=== PATIENT | female | born 1990 ===

== ENCOUNTER 2018-03-28 11:02 | Emergency (ER) | payer BC ==
[~2018-03-28] VITALS: Ht 129.5 cm; Wt 56.7 kg
[~2018-03-28 11:02] MED LIST: ADAL40PEN; ALPR.5 PO; BISA10S PR; CIPR500 PO; DOCU100 PO; GAVILAX17 GM PO; HYDACE25S PR; HYDR1TAB94 PO; HYDSUL200 PO; IBUP600 PO; MESALAMINE1.2 GM PO; METO25ER PO; METR500 PO; PRED10 PO; Percocet 5-3251 EACH PO; Prednisone20 MG PO; SULF500A PO; UCERIS9 MG PO; Zofran Odt4 MG SL
[2018-03-28 11:34] LABS: Source, Urine Clean Catch
[2018-03-28 11:39] LABS: Bilirubin, Urine Neg (Neg); Blood, Urine Neg (Neg); Glucose Qualitative, Urine Neg (Neg); Ketones, Urine Neg (Neg); Leukocyte Esterase, Urine Neg (Neg); Nitrite, Urine Neg (Neg); Protein, Urine Neg (Neg); Urobilinogen, Urine NORM (Normal); pH, Urine 6.5 (5.0-8.0)
[2018-03-28 11:43] LABS: BASOPHILS ABSOLUTE AUTO 0.01 K/mm3 (0.00-0.23); BASOPHILS PERCENT AUTO 0 % (0-2); EOSINOPHILS ABSOLUTE AUTO 0.06 K/mm3 (0.00-0.68); EOSINOPHILS PERCENT AUTO 1 % (0-6); Hematocrit 39.5 % (33.0-51.0); Hemoglobin 12.6 g/dL (11.5-16.0); IMMATURE GRAN ABSOLUTE AUTO 0.02 K/mm3 (0.00-0.10); IMMATURE GRAN PERCENT AUTO 1 % (0-1); LYMPHOCYTES ABSOLUTE AUTO 1.51 K/mm3 (0.84-5.20); LYMPHOCYTES PERCENT AUTO 35 % (21-46); MONOCYTES ABSOLUTE AUTO 0.48 K/mm3 (0.16-1.47); MONOCYTES PERCENT AUTO 11 % (4-13); Mean Corpuscular HGB 26.9 pg (26.0-34.0); Mean Corpuscular HGB Conc 31.9 g/dL (31.5-36.5); Mean Corpuscular Volume 84 fL (80-100); Mean Platelet Volume 10.9 fL (9.1-12.4); NEUTROPHILS PERCENT AUTO 51 % (41-73); Platelet Count 230 K/mm3 (150-400); RDW Coefficient Variation 14.9 % (11.7-14.2); RDW Standard Deviation 46.2 fL (35.1-46.3); Red Blood Cell Count 4.69 M/mm3 (3.80-5.20); White Blood Cell Count 4.28 K/mm3 (4.00-11.30)
[2018-03-28 11:47] LABS: Appearance, Urine Clear (Clear); Color, Urine Yellow (P-Yellow)
[2018-03-28 11:58] LABS: Alanine Aminotransfer (ALT/SGP 14 U/L (12-78); Albumin, Blood 3.6 g/dL (3.4-5.0); Albumin/Globulin Ratio 0.7 (0.8-1.8); Alk Phos 106 U/L (50-136); Anion Gap 10 mmol/L (6-16); Aspartate Aminotrans (AST/SGOT 21 U/L (12-37); Bilirubin, Total 0.4 mg/dL (0.1-1.0); Blood Urea Nitrogen 8 mg/dL (8-24); CO2, Blood 22 mmol/L (21-32); Calcium, Blood 8.7 mg/dL (8.5-10.1); Chloride, Blood 106 mmol/L (98-108); Creatinine, Blood 0.57 mg/dL (0.40-1.00); Globulin, Blood 5.1 g/dL (2.2-4.0); Glomerular Filtration Rate >60 (60-); Glucose, Blood 76 mg/dL (70-99); Potassium, Blood 3.1 mmol/L (3.5-5.5); Sodium, Blood 138 mmol/L (136-145); Total Protein, Blood 8.7 g/dL (6.4-8.2)
[2018-03-28] MEDS ORDERED: Zofran4 MG PO (14:13)
== END 2018-03-28 14:20 | disposition home or self-care (01) ==
LOC: ER 11:02
PROVIDERS: Emergency Medicine
DX: R10.30 Lower abdominal pain, unspecified (principal); Z87.19 Personal history of other diseases of the digestive system; Z91.040 Latex allergy status
CPT/HCPCS: 36415; 80053; 81003; 81025; 83690; 85025; 96374; 96375; 99284-25; J1170; J2060; J2405; J7120

== ENCOUNTER 2018-03-30 08:49 | Day surgery (SDC) | payer BC ==
[~2018-03-30] VITALS: Ht 154.9 cm; Wt 55.0 kg
[~2018-03-30 08:49] MED LIST changes: +Zofran4 MG PO
== END 2018-03-30 11:12 | disposition home or self-care (01) ==
LOC: ORSCSDS 08:49
PROVIDERS: Internal Medicine Gastroenterology
PROC: 0DBB8ZX Excision of Ileum, Via Natural or Artificial Opening Endoscopic, Diagnostic (ICD-10-PCS; principal; 2018-03-30 10:15)
PROC: 0DBE8ZX Excision of Large Intestine, Via Natural or Artificial Opening Endoscopic, Diagnostic (ICD-10-PCS; principal; 2018-03-30 10:15)
PROC: 0DBP8ZX Excision of Rectum, Via Natural or Artificial Opening Endoscopic, Diagnostic (ICD-10-PCS; principal; 2018-03-30 10:15)
DX: K50.90 Crohn's disease, unspecified, without complications (principal); K64.4 Residual hemorrhoidal skin tags; I10 Essential (primary) hypertension; D64.9 Anemia, unspecified; Z79.899 Other long term (current) drug therapy
CPT/HCPCS: 88305; J7120

== ENCOUNTER 2018-06-19 09:39 | Emergency (ER) | payer BC ==
[~2018-06-19] VITALS: Ht 154.9 cm; Wt 56.7 kg
[2018-06-19] MEDS ORDERED: STELARA90 MG/1 ML (11:06)
[2018-06-19 11:25] LABS: BASOPHILS ABSOLUTE AUTO 0.01 K/mm3 (0.00-0.23); BASOPHILS PERCENT AUTO 0 % (0-2); EOSINOPHILS ABSOLUTE AUTO 0.01 K/mm3 (0.00-0.68); EOSINOPHILS PERCENT AUTO 0 % (0-6); Hematocrit 39.3 % (33.0-51.0); Hemoglobin 12.7 g/dL (11.5-16.0); IMMATURE GRAN ABSOLUTE AUTO 0.01 K/mm3 (0.00-0.10); IMMATURE GRAN PERCENT AUTO 0 % (0-1); LYMPHOCYTES ABSOLUTE AUTO 1.18 K/mm3 (0.84-5.20); LYMPHOCYTES PERCENT AUTO 30 % (21-46); MONOCYTES PERCENT AUTO 13 % (4-13); Mean Corpuscular HGB 27.1 pg (26.0-34.0); Mean Corpuscular HGB Conc 32.3 g/dL (31.5-36.5); Mean Corpuscular Volume 84 fL (80-100); Mean Platelet Volume 10.9 fL (9.1-12.4); NEUTROPHILS ABSOLUTE AUTO 2.25 K/mm3 (1.96-9.15); NEUTROPHILS PERCENT AUTO 57 % (41-73); Platelet Count 174 K/mm3 (150-400); RDW Coefficient Variation 14.2 % (11.7-14.2); RDW Standard Deviation 43.3 fL (35.1-46.3); Red Blood Cell Count 4.69 M/mm3 (3.80-5.20); White Blood Cell Count 3.96 K/mm3 (4.00-11.30)
[2018-06-19 11:45] LABS: Alanine Aminotransfer (ALT/SGP 15 U/L (12-78); Albumin, Blood 3.6 g/dL (3.4-5.0); Albumin/Globulin Ratio 0.7 (0.8-1.8); Alk Phos 113 U/L (50-136); Anion Gap 9 mmol/L (6-16); Aspartate Aminotrans (AST/SGOT 25 U/L (12-37); Bilirubin, Total 0.4 mg/dL (0.1-1.0); Blood Urea Nitrogen 7 mg/dL (8-24); Bun/Creatinine Ratio 13.7 (12.0-20.0); CO2, Blood 24 mmol/L (21-32); Calcium, Blood 8.5 mg/dL (8.5-10.1); Chloride, Blood 104 mmol/L (98-108); Creatinine, Blood 0.51 mg/dL (0.40-1.00); Globulin, Blood 5.5 g/dL (2.2-4.0); Glomerular Filtration Rate >60 (60-); Glucose, Blood 77 mg/dL (70-99); Potassium, Blood 3.4 mmol/L (3.5-5.5); Sodium, Blood 137 mmol/L (136-145); Total Protein, Blood 9.1 g/dL (6.4-8.2)
[2018-06-19] MEDS ORDERED: Zofran8 MG PO (14:22)
[2018-06-19] MEDS ORDERED: IBUP400 PO (14:22)
== END 2018-06-19 14:35 | disposition home or self-care (01) ==
LOC: ER 09:39
PROVIDERS: Emergency Medicine
DX: R51 Headache (principal); K50.90 Crohn's disease, unspecified, without complications; L93.0 Discoid lupus erythematosus; M25.561 Pain in right knee; M25.562 Pain in left knee; Z91.040 Latex allergy status; Z88.5 Allergy status to narcotic agent; M19.90 Unspecified osteoarthritis, unspecified site
CPT/HCPCS: 36415; 80053; 85025; 96361; 96374; 99283-25; J0780; J7030

== ENCOUNTER → 2018-08-29 | Outpatient (CLI) | payer BC ==
[~2018-08-29] MED LIST changes: +IBUP400 PO; +STELARA90 MG/1 ML; +Zofran8 MG PO
[2018-08-31 13:07] LABS: HPV 16 Negative (Negative); HPV 18 Negative (Negative); HPV OTHER HR TYPES Negative (Negative)
== END | disposition home or self-care (01) ==
LOC: LAB 18:25 → LAB SHORT 18:25
PROVIDERS: Nurse Practitioner Family
DX: Z12.4 Encounter for screening for malignant neoplasm of cervix (principal)
CPT/HCPCS: 87624; G0123

== ENCOUNTER → 2018-11-14 | Outpatient (CLI) | payer BC, OTHER | LOC: LAB 18:15 → LAB SHORT 18:15 | DX: R30.0 Dysuria (principal) | CPT/HCPCS: 87086 ==

== ENCOUNTER 2019-01-24 05:58 | Day surgery (SDC) | payer BC, OTHER ==
[~2019-01-24] VITALS: Ht 154.9 cm; Wt 56.2 kg
[~2019-01-24 05:58] MED LIST changes: +QUDEXY XR50 MG PO
--- NOTE | 2019-01-24 06:38 | NUR ---
History, Chart, Medications and Allergies reviewed before start of procedure. Lungs clear T/O to Auscultation.
--- NOTE | 2019-01-24 07:52 | NUR ---
01/24/19 0752 Estee Quan CATH, NONLATEX, PLACED BY DR PABLO AT BEGINNING OF PROCEDURE.
[2019-01-24 15:07] LABS: BASOPHILS ABSOLUTE AUTO 0.01 K/mm3 (0.00-0.23); BASOPHILS PERCENT AUTO 0 % (0-2); EOSINOPHILS PERCENT AUTO 0 % (0-6); Hematocrit 34.7 % (33.0-51.0); Hemoglobin 11.3 g/dL (11.5-16.0); IMMATURE GRAN ABSOLUTE AUTO 0.04 K/mm3 (0.00-0.10); IMMATURE GRAN PERCENT AUTO 0 % (0-1); LYMPHOCYTES ABSOLUTE AUTO 0.57 K/mm3 (0.84-5.20); LYMPHOCYTES PERCENT AUTO 5 % (21-46); MONOCYTES ABSOLUTE AUTO 0.25 K/mm3 (0.16-1.47); MONOCYTES PERCENT AUTO 2 % (4-13); Mean Corpuscular HGB 28.3 pg (26.0-34.0); Mean Corpuscular HGB Conc 32.6 g/dL (31.5-36.5); Mean Corpuscular Volume 87 fL (80-100); Mean Platelet Volume 10.6 fL (9.1-12.4); NEUTROPHILS ABSOLUTE AUTO 10.34 K/mm3 (1.96-9.15); NEUTROPHILS PERCENT AUTO 92 % (41-73); Platelet Count 195 K/mm3 (150-400); RDW Standard Deviation 44.9 fL (35.1-46.3); White Blood Cell Count 11.21 K/mm3 (4.00-11.30)
--- NOTE | 2019-01-24 16:23 | NUR ---
SHIFT SUMMARY S/P VAG HYSTERECTOMY TODAY. PT HAS STRUGGLED WITH PAIN MANAGEMENT. 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 GIVING TORADOL PER ORDERS WELL. PT HAS ALSO BEEN NAUSEATED--MEDICATING WITH ZOFRAN. ONLY TOLERATING SMALL SIPS OF CLEARS. PT HAS BEEN UP OUT OF BED TO THE RESTROOM WITH 1 SBA. RANDY PAD WITH SCANT VAGINAL BLEEDING. PÉREZ PATENT WITH CLEAR YELLOW URINE. PT USES CALL LIGHT APPROPRIATELY.
[2019-01-25 04:32] LABS: BASOPHILS ABSOLUTE AUTO 0.01 K/mm3 (0.00-0.23); BASOPHILS PERCENT AUTO 0 % (0-2); EOSINOPHILS ABSOLUTE AUTO 0.01 K/mm3 (0.00-0.68); EOSINOPHILS PERCENT AUTO 0 % (0-6); Hematocrit 31.8 % (33.0-51.0); Hemoglobin 10.8 g/dL (11.5-16.0); IMMATURE GRAN ABSOLUTE AUTO 0.02 K/mm3 (0.00-0.10); IMMATURE GRAN PERCENT AUTO 0 % (0-1); LYMPHOCYTES ABSOLUTE AUTO 1.08 K/mm3 (0.84-5.20); LYMPHOCYTES PERCENT AUTO 17 % (21-46); MONOCYTES ABSOLUTE AUTO 0.63 K/mm3 (0.16-1.47); MONOCYTES PERCENT AUTO 10 % (4-13); Mean Corpuscular HGB 28.8 pg (26.0-34.0); Mean Corpuscular Volume 85 fL (80-100); Mean Platelet Volume 10.6 fL (9.1-12.4); NEUTROPHILS ABSOLUTE AUTO 4.55 K/mm3 (1.96-9.15); NEUTROPHILS PERCENT AUTO 72 % (41-73); Platelet Count 185 K/mm3 (150-400); RDW Coefficient Variation 13.9 % (11.7-14.2); RDW Standard Deviation 42.9 fL (35.1-46.3); Red Blood Cell Count 3.75 M/mm3 (3.80-5.20)
--- NOTE | 2019-01-25 06:00 | NUR ---
SHIFT SUMMARY POD 1 S/P VAGINAL HYSTER. A/OX4 W/VSS. PT RESTED WELL MOST OF SHIFT. MEDICATED ONCE WITH PO MEDS PER EMAR. TOLERATED SMALL AMOUNTS OF REGULAR DIET. FLUIDS AND ABX RUNNING PER ORDERS. SCANT AMOUNT OF VAGINAL BLEEDING NOTED. CURRENTLY RESTING IN BED WITH CALL LIGHT WITHIN REACH.
--- NOTE | 2019-01-25 07:50 | NUR ---
PT STATED PAIN IS 4-5/10 NO FLATUS PT HAS SMALL AMT OF VAG BLEEDING NO NAUSEA
--- NOTE | 2019-01-25 08:30 | NUR ---
DR PABLO BY TO SEE PT PT HAS VOIDED 300 ML OK TO DISCHARGE HOME
[2019-01-25] MEDS ORDERED: DOCU100 PO (09:49)
[2019-01-25] MEDS ORDERED: HYDR1TAB94 PO (09:50)
--- NOTE | 2019-01-25 09:59 | NUR ---
0.5 MG NORCO GIVEN DISCHARGE INSTRUCTIONS REVIEWED WITH PT VERBALIZED NO ACUTE CHANGES RX GIVEN
--- NOTE | 2019-01-25 10:05 | NUR ---
WC ESCORT TO CAR
== END 2019-01-25 10:06 | disposition home or self-care (01) ==
LOC: ORSCMMR 05:58 → ORD 07:30 → SURS 10:39 → ORSCMMR 01-25 10:06
PROVIDERS: Obstetrics & Gynecology Gynecology
PROC: 0UT97ZZ Resection of Uterus, Via Natural or Artificial Opening (ICD-10-PCS; principal; 2019-01-25)
DX: N92.0 Excessive and frequent menstruation with regular cycle (principal); N94.6 Dysmenorrhea, unspecified; D50.0 Iron deficiency anemia secondary to blood loss (chronic); Z92.0 Personal history of contraception; K50.90 Crohn's disease, unspecified, without complications; M32.9 Systemic lupus erythematosus, unspecified; I10 Essential (primary) hypertension
CPT/HCPCS: 36415; 85025; 88307; A9270-GY; J0690; J1100; J1885; J2250; J2270; J2405; J2704; J2710; J3010; J7120

== ENCOUNTER 2019-04-03 12:03 | Emergency (ER) | payer BC, OTHER ==
[~2019-04-03] VITALS: Ht 154.9 cm; Wt 53.5 kg
[2019-04-03] MEDS ORDERED: BUSP10 PO (12:23)
[2019-04-03] MEDS ORDERED: AMOX250 PO (12:23)
[2019-04-03 13:11] LABS: BASOPHILS ABSOLUTE AUTO 0.02 K/mm3 (0.00-0.23); BASOPHILS PERCENT AUTO 1 % (0-2); EOSINOPHILS ABSOLUTE AUTO 0.04 K/mm3 (0.00-0.68); EOSINOPHILS PERCENT AUTO 1 % (0-6); Hematocrit 41.4 % (33.0-51.0); Hemoglobin 13.6 g/dL (11.5-16.0); IMMATURE GRAN ABSOLUTE AUTO 0.01 K/mm3 (0.00-0.10); IMMATURE GRAN PERCENT AUTO 0 % (0-1); LYMPHOCYTES ABSOLUTE AUTO 1.09 K/mm3 (0.84-5.20); LYMPHOCYTES PERCENT AUTO 25 % (21-46); MONOCYTES ABSOLUTE AUTO 0.63 K/mm3 (0.16-1.47); MONOCYTES PERCENT AUTO 15 % (4-13); Mean Corpuscular HGB 28.1 pg (26.0-34.0); Mean Corpuscular HGB Conc 32.9 g/dL (31.5-36.5); Mean Corpuscular Volume 86 fL (80-100); Mean Platelet Volume 10.9 fL (9.1-12.4); NEUTROPHILS ABSOLUTE AUTO 2.52 K/mm3 (1.96-9.15); NEUTROPHILS PERCENT AUTO 59 % (41-73); Platelet Count 190 K/mm3 (150-400); RDW Coefficient Variation 13.6 % (11.7-14.2); RDW Standard Deviation 43.3 fL (35.1-46.3); Red Blood Cell Count 4.84 M/mm3 (3.80-5.20); White Blood Cell Count 4.31 K/mm3 (4.00-11.30)
[2019-04-03 13:21] LABS: Alanine Aminotransfer (ALT/SGP 16 U/L (12-78); Albumin, Blood 3.7 g/dL (3.4-5.0); Albumin/Globulin Ratio 0.6 (0.8-1.8); Alk Phos 129 U/L (50-136); Anion Gap 6 mmol/L (6-16); Aspartate Aminotrans (AST/SGOT 18 U/L (12-37); Bilirubin, Total 0.4 mg/dL (0.1-1.0); Blood Urea Nitrogen 11 mg/dL (8-24); Bun/Creatinine Ratio 16.7 (12.0-20.0); CO2, Blood 22 mmol/L (21-32); Calcium, Blood 8.9 mg/dL (8.5-10.1); Chloride, Blood 108 mmol/L (98-108); Creatinine, Blood 0.66 mg/dL (0.40-1.00); Globulin, Blood 5.7 g/dL (2.2-4.0); Glomerular Filtration Rate >60 (60-); Glucose, Blood 91 mg/dL (70-99); Potassium, Blood 3.6 mmol/L (3.5-5.5); Sodium, Blood 136 mmol/L (136-145); Total Protein, Blood 9.4 g/dL (6.4-8.2)
[2019-04-03 14:46] LABS: Base Excess Venous -6.6 mmol/L; Bicarbonate Venous 19.7 mmol/L (24.0-30.0); PCO2 Venous 34.9 mmHg (38-42); PO2 Venous 83.6 mmHg (38-42); pH Blood Venous 7.35 (7.34-7.37)
[2019-04-03] MEDS ORDERED: KEFLEX500 MG PO (15:29)
== END 2019-04-03 15:38 | disposition home or self-care (01) ==
LOC: ER 12:03
PROVIDERS: Emergency Medicine; Physician Assistant
DX: J40 Bronchitis, not specified as acute or chronic (principal); R59.0 Localized enlarged lymph nodes; G47.00 Insomnia, unspecified; Z91.040 Latex allergy status; Z88.5 Allergy status to narcotic agent; Z79.899 Other long term (current) drug therapy
CPT/HCPCS: 36415; 71046; 80053; 82803; 85025; 93005; 93010; 99284-25

== ENCOUNTER → 2020-03-11 | Outpatient (CLI) | payer OTHER ==
[~2020-03-11] MED LIST changes: +AMIT10 PO; +AMOX250 PO; +BUSP10 PO; +EMGALITY120 MG/1 M SQ; +ESTRADIOL42.5 GM; +FENO48 PO; +KEFLEX500 MG PO; +KETOROLAC TROME10 M1 PO; +ZOLM5 PO
== END ==
LOC: LAB 13:09 → LAB SHORT 13:09
DX: J02.9 Acute pharyngitis, unspecified (principal); M54.9 Dorsalgia, unspecified
CPT/HCPCS: 87081; 87086

== ENCOUNTER 2020-05-09 19:07 | Emergency (ER) | payer OTHER ==
[~2020-05-09] VITALS: Ht 154.9 cm; Wt 65.8 kg
[~2020-05-09 19:07] MED LIST changes: -AMIT10 PO; -EMGALITY120 MG/1 M SQ; -ESTRADIOL42.5 GM; -FENO48 PO; -KETOROLAC TROME10 M1 PO; -ZOLM5 PO
[2020-05-09] MEDS ORDERED: ESTRADIOL42.5 GM (20:06)
[2020-05-09] MEDS ORDERED: KETOROLAC TROME10 M1 PO (20:06)
[2020-05-09] MEDS ORDERED: AMIT10 PO (20:06)
== END 2020-05-09 22:06 | disposition home or self-care (01) ==
LOC: ER 19:07
DX: N64.4 Mastodynia (principal); Z88.0 Allergy status to penicillin; Z88.5 Allergy status to narcotic agent; Z79.3 Long term (current) use of hormonal contraceptives; Z91.040 Latex allergy status
CPT/HCPCS: 71046; 99283-25

== ENCOUNTER 2020-09-11 17:56 | Emergency (ER) | payer OTHER ==
[~2020-09-11] VITALS: Ht 154.9 cm; Wt 64.4 kg
[~2020-09-11 17:56] MED LIST changes: +AMIT10 PO; +ESTRADIOL42.5 GM; +KETOROLAC TROME10 M1 PO
[2020-09-11 18:28] LABS: BASOPHILS ABSOLUTE AUTO 0.02 K/mm3 (0.00-0.23); BASOPHILS PERCENT AUTO 0 % (0-2); EOSINOPHILS ABSOLUTE AUTO 0.07 K/mm3 (0.00-0.68); EOSINOPHILS PERCENT AUTO 1 % (0-6); Hematocrit 38.8 % (33.0-51.0); Hemoglobin 13.3 g/dL (11.5-16.0); IMMATURE GRAN ABSOLUTE AUTO 0.02 K/mm3 (0.00-0.10); IMMATURE GRAN PERCENT AUTO 0 % (0-1); LYMPHOCYTES ABSOLUTE AUTO 1.49 K/mm3 (0.84-5.20); LYMPHOCYTES PERCENT AUTO 30 % (21-46); MONOCYTES ABSOLUTE AUTO 0.39 K/mm3 (0.16-1.47); MONOCYTES PERCENT AUTO 8 % (4-13); Mean Corpuscular HGB 29.8 pg (26.0-34.0); Mean Corpuscular HGB Conc 34.3 g/dL (31.5-36.5); Mean Corpuscular Volume 87 fL (80-100); Mean Platelet Volume 10.8 fL (9.1-12.4); NEUTROPHILS ABSOLUTE AUTO 2.99 K/mm3 (1.96-9.15); NEUTROPHILS PERCENT AUTO 60 % (41-73); Platelet Count 226 K/mm3 (150-400); RDW Standard Deviation 41.2 fL (35.1-46.3); Red Blood Cell Count 4.46 M/mm3 (3.80-5.20); White Blood Cell Count 4.98 K/mm3 (4.00-11.30)
[2020-09-11 18:58] LABS: Alanine Aminotransfer (ALT/SGP 59 U/L (12-78); Albumin, Blood 3.5 g/dL (3.4-5.0); Albumin/Globulin Ratio 0.7 (0.8-1.8); Alk Phos 105 U/L (50-136); Anion Gap 5 mmol/L (6-16); Aspartate Aminotrans (AST/SGOT 57 U/L (12-37); Bilirubin, Total 0.6 mg/dL (0.1-1.0); Blood Urea Nitrogen 9 mg/dL (8-24); Bun/Creatinine Ratio 13.3 (12.0-20.0); CO2, Blood 25 mmol/L (21-32); Chloride, Blood 106 mmol/L (98-108); Creatinine, Blood 0.68 mg/dL (0.40-1.00); Globulin, Blood 5.3 g/dL (2.2-4.0); Glomerular Filtration Rate >60 (60-); Glucose, Blood 95 mg/dL (70-99); Potassium, Blood 3.9 mmol/L (3.5-5.5); Sodium, Blood 136 mmol/L (136-145); Total Protein, Blood 8.8 g/dL (6.4-8.2)
[2020-09-11 20:36] LABS: Source, Urine Clean Catch
[2020-09-11 20:45] LABS: Appearance, Urine Clear (Clear); Bilirubin, Urine Neg (Neg); Blood, Urine 2+ (Neg); Color, Urine Yellow (P-Yellow); Glucose Qualitative, Urine Neg (Neg); Ketones, Urine Neg (Neg); Leukocyte Esterase, Urine Neg (Neg); Nitrite, Urine Neg (Neg); Protein, Urine 3+ (Neg); Urobilinogen, Urine 1+ (Normal)
[2020-09-11 20:54] LABS: Bacteria Many /hpf; Mucus Light (0-Heavy); Squamous Epithelial Cells Few /hpf (Few); White Blood Cells, Urine 0-2 /hpf (0-5)
[2020-09-11] MEDS ORDERED: EMGALITY120 MG/1 M SQ (21:41)
[2020-09-11] MEDS ORDERED: FENO48 PO (21:41)
[2020-09-11] MEDS ORDERED: ZOLM5 PO (21:42)
== END 2020-09-12 00:52 | disposition home or self-care (01) ==
LOC: ER 17:56
PROVIDERS: Physician Assistant
DX: R10.9 Unspecified abdominal pain (principal); Z79.3 Long term (current) use of hormonal contraceptives; Z79.899 Other long term (current) drug therapy; Z88.5 Allergy status to narcotic agent
CPT/HCPCS: 36415; 74177; 80053; 81001; 81025; 83690; 85025; 87086; 96374-59; 99284-25; J1885; J7030; Q9967

== ENCOUNTER → 2021-02-08 | Outpatient (CLI) | payer OTHER ==
[~2021-02-08] MED LIST changes: +EMGALITY120 MG/1 M SQ; +FENO48 PO; +ZOLM5 PO
== END ==
LOC: LAB SHORT 16:06
DX: R30.0 Dysuria (principal)
CPT/HCPCS: 87077; 87086; 87186

== ENCOUNTER 2021-08-15 13:05 | Emergency (ER) | payer OTHER ==
[~2021-08-15] VITALS: Ht 154.9 cm; Wt 62.6 kg
[~2021-08-15 13:05] MED LIST changes: +BENZ100A PO; +Norco 5-325 Ta1 EACH PO; +Pepcid20 MG PO
[2021-08-15 14:00] LABS: BASOPHILS ABSOLUTE AUTO 0.01 K/mm3 (0.00-0.23); BASOPHILS PERCENT AUTO 0 % (0-2); EOSINOPHILS ABSOLUTE AUTO 0.09 K/mm3 (0.00-0.68); EOSINOPHILS PERCENT AUTO 3 % (0-6); Hematocrit 37.9 % (33.0-51.0); IMMATURE GRAN ABSOLUTE AUTO 0.01 K/mm3 (0.00-0.10); IMMATURE GRAN PERCENT AUTO 0 % (0-1); LYMPHOCYTES ABSOLUTE AUTO 1.21 K/mm3 (0.84-5.20); LYMPHOCYTES PERCENT AUTO 33 % (21-46); MONOCYTES ABSOLUTE AUTO 0.35 K/mm3 (0.16-1.47); MONOCYTES PERCENT AUTO 10 % (4-13); Mean Corpuscular HGB Conc 34.3 g/dL (31.5-36.5); Mean Corpuscular Volume 88 fL (80-100); NEUTROPHILS ABSOLUTE AUTO 1.96 K/mm3 (1.96-9.15); NEUTROPHILS PERCENT AUTO 54 % (41-73); Platelet Count 183 K/mm3 (150-400); RDW Coefficient Variation 12.7 % (11.7-14.2); RDW Standard Deviation 40.8 fL (35.1-46.3); Red Blood Cell Count 4.33 M/mm3 (3.80-5.20); White Blood Cell Count 3.63 K/mm3 (4.00-11.30)
[2021-08-15 14:22] LABS: Albumin, Blood 3.2 g/dL (3.4-5.0); Albumin/Globulin Ratio 0.6 (0.8-1.8); Bilirubin, Total 0.4 mg/dL (0.1-1.0); Bun/Creatinine Ratio 25.5 (12.0-20.0); Calcium, Blood 8.4 mg/dL (8.5-10.1); Creatinine, Blood 0.47 mg/dL (0.40-1.00); Potassium, Blood 3.9 mmol/L (3.5-5.5); Total Protein, Blood 8.2 g/dL (6.4-8.2)
[2021-08-15 16:28] LABS: Source, Urine Clean Catch
[2021-08-15 16:34] LABS: Appearance, Urine Clear (Clear); Bilirubin, Urine Neg (Neg); Blood, Urine 2+ (Neg); Color, Urine Yellow (P-Yellow); Glucose Qualitative, Urine Neg (Neg); Ketones, Urine Neg (Neg); Leukocyte Esterase, Urine Neg (Neg); Nitrite, Urine Neg (Neg); Protein, Urine 2+ (Neg); Specific Gravity, Urine 1.015 (1.003-1.022); Urobilinogen, Urine NORM (Normal)
[2021-08-15 16:52] LABS: Bacteria Few /hpf; Squamous Epithelial Cells Few /hpf (Few); White Blood Cells, Urine 0-2 /hpf (0-5)
== END 2021-08-15 19:00 | disposition home or self-care (01) ==
LOC: ER 13:05
PROVIDERS: Physician Assistant
DX: M54.6 Pain in thoracic spine (principal); Z79.899 Other long term (current) drug therapy
CPT/HCPCS: 36415; 72080; 80053; 81001; 81025; 83690; 85025; 86140; J1885; J7030